=== PATIENT | female | born 1945 | race Caucasian/White ===

== ENCOUNTER 2019-02-22 09:51 | Emergency (ER) | payer MEDICAID, SELFPAY ==
[2019-02-22 09:55] VITALS: BMI 18.8
[2019-02-22 09:57] VITALS: BP 131/51; PULSE 74; RESP 18; TEMP 36.6; O2SAT 98
--- NOTE | 2019-02-22 09:58 | ED_ITS ---
Entered by Santiago Cueto LPN, acting as scribe for Davie Wilson MD HPI - Extremity Problem General: Chief complaint: Extremity Injury, Upper Stated complaint: fall/right wrist pain Time Seen by Provider: 02/22/19 09:56 Source: patient Mode of arrival: ambulatory Limitations: no limitations History of Present Illness: HPI Narrative: 73 yo female presents with c/o right wrist pain that started after she tripped and fell in the bathroom about 0230 this am. Pain increases with touch and movement, mostly present on radial side. Currently rating pain as severe. She denies numbness or tingling. She denies prior injury or surgery to this extremity. She denies any other injury in the fall. Denies head injury or LOC, denies neck pain. She is currently on Xarelto, for h/o CVA. No recent med changes. No other recent signs of illness. Pt last drank one cup of coffee about 0800. Complaint: extremity pain (RUE wrist) Onset (ago): day(s) (onset today, 0230 this am) Pain Consistency: constant Location: right Radiation: none Relieving factors: movement Exacerbating factors: nothing Associated symptoms: Deny chest pain, fever(s) or rash Review of Systems Const: Denies: fever, chills, night sweats or diaphoresis Eyes: Denies: change in vision or blurry vision ENMT: Denies: throat pain Card: Denies: chest pain Resp: Denies: shortness of breath or productive cough GI: Denies: abdominal pain, nausea, vomiting, constipation or change in bowel habits : Denies: painful urination Musc: Reports: extremity pain; Denies: joint pain Skin/Breast: Denies: rash Neuro: Denies: headache, difficulty walking or confusion Psych: Denies: suicidal ideation or homicidal ideation PFSH ED PFSH: Statuses (acute, chronic, etc) shown below reflect problem list status as previously entered and may not be historically accurate Medical History (Updated 02/22/19 @ 10:08 by Santiago Cueto LPN) H/O: CVA (cerebrovascular accident) (Acute) Social History Smoking and tobacco status: former smoker Physical Exam Const: COMMON NORMALS: no apparent distress, oriented x3, no limitations and alert EXAM LIMITATIONS: no altered mental status GENERAL APPEARANCE: cooperative, comfortable and well developed; not in distress, not anxious and not lethargic ORIENTATION/CONSCIOUSNESS: Yes awake, Yes oriented to person, Yes oriented to place and Yes oriented to time; not lethargic HENMT: COMMON NORMALS: normocephalic, head/scalp atraumatic and external nose normal HEAD & SCALP: normocephalic and atraumatic FACE & SINUS: normal facial exam NOSE: external nose normal Eye: COMMON NORMALS: PERRL, EOMs intact bilaterally, conjunctivae normal and no scleral icterus CONJUNCTIVA: Yes conjunctivae normal PUPIL: Yes PERRL Neck/C-Spine: COMMON NORMALS: full ROM GENERAL: Yes normal visual inspection Chest: COMMONS NORMALS: inspection of chest normal and palpation of chest normal Resp: COMMON NORMALS: normal respiratory effort, no retractions, no use of accessory muscles and clear to auscultation bilaterally EFFORT & INSPECTION: Yes able to speak in complete sentences AUSCULTATION: clear to auscultation bilaterally Cardio: COMMON NORMALS: regular rate, regular rhythm, no murmurs and peripheral pulses 2+ throughout RATE: regular rate RHYTHM: regular rhythm PERIPHERAL PULSES: pulses 2+ throughout, radial pulses present and posterior tibial pulses present GI: COMMON NORMALS: normal to inspection, nondistended, normoactive bowel sounds, soft to palpation, non-tender, no hepatosplenomegaly, no masses and no bruits PALPATION: Yes soft and Yes no hepatosplenomegaly Extremity: COMMON NORMALS: full ROM, normal capillary refill, no joint enlargement and no clubbing, cyanosis or edema NARRATIVE EXTREMITY EXAM: tenderness to palpation along dorsal and radial aspect right wrist, full ROM throughout fingers, hand, wrist, elbow but limited by pain, n/v intact distally, good strong ulnar and radial pulses, 2+ capillary refill. Neuro: COMMON NORMALS: oriented x3 SENSORIUM/ORIENTATION: Yes alert, Yes oriented to person, Yes oriented to place, Yes oriented to time and No lethargic Psych: COMMON NORMALS: mental status grossly normal, thought process normal, cooperative, affect normal, speech normal and activity/motor behavior normal SPEECH: Yes normal speech THOUGHT PROCESS: normal thought process Skin: COMMON NORMALS: no rashes or lesions noted and skin turgor normal GENERAL SKIN EXAM: no rashes or lesions noted, elasticity normal and turgor normal Course ED course: Patient has a mild patient has a mild nondisplaced comminuted nonangulated radius and ulnar fracture. We will place the patient in a sugar tong reevaluate neurovascular status and have her follow-up with orthopedics Reevaluation(s): Reevaluation #1: Sugar tong splint placed in appropriate location and condition. Patient is neurovascularly intact with good sensation and strength and capillary refill all 5 digits. Time: 11:26 Vital Signs: Vital signs: Vital Signs Temperature 97.8 F 02/22/19 09:57 Pulse Rate 74 02/22/19 09:57 Respiratory Rate 18 02/22/19 09:57 Blood Pressure 131/51 02/22/19 09:57 Pulse Oximetry 98 02/22/19 09:57 MDM - Extremity (Nontraumatic) MDM Narrative: Medical decision making narrative: Differential includes radial/ulnar wrist fracture, sprain, contusion. Patient's is not exquisitely tender but tender with palpation and movement. She does have full range of motion as far as use of her hand fingers wrist and elbow muscles and tendons but is limited by pain. She is neurovascular intact. Will get imaging help with pain control Imaging Data^: Xray Ortho: My impression: Ulnar styloid fracture with concurrent comminuted nondisplaced extra-articular ulnar fracture also nondisplaced mildly comminuted nondisplaced radial fracture Discharge Plan Discharge Prescriptions: No Action enalapril maleate 5 mg Tablet 5 mg PO DAILY RF: 0 lovastatin 40 mg Tablet 40 mg PO DAILY RF: 0 topiramate 25 mg Tablet 25 mg PO DAILY RF: 0 levothyroxine 100 mcg Tablet 100 mcg PO DAILY RF: 0 Xanax 0.5 mg Tablet 0.5 mg PO TID PRN (Reason: Anxiety) RF: 0 memantine 5 mg Tablet 5 mg PO BID RF: 0 Xarelto 10 mg Tablet 10 mg PO DAILY RF: 0 fluoxetine 60 mg Tablet 60 mg PO DAILY RF: 0 Tylenol Arthritis Pain 650 mg Tablet Extended Release 650 mg PO DAILY RF: 0 magnesium 250 mg Tablet 250 mg PO DAILY RF: 0 turmeric 400 mg Capsule 400 mg PO DAILY RF: 0 Coding Level of Care Code ED Cigarette Making Machine Hopper Feeder for Chg Fwd Exam Problem Focused The documentation recorded by the Nory saeed Dani Elizabeth, LPN, accurately reflects the service I personally performed and the decisions made by me, Davie Wilson MD
--- NOTE | 2019-02-22 10:03 | XRR_ITS ---
PROCEDURE INFORMATION: Exam: XR Right Wrist Exam date and time: 02/22/2019 10:09 AM Age: 73 years old Clinical indication: Injury or trauma; Fall; Initial encounter; Blunt trauma (contusions or hematomas; Wrist; Right; Additional info: Fall with pain TECHNIQUE: Imaging protocol: XR Right wrist. Views: 3 or more views. COMPARISON: No relevant prior studies available. FINDINGS: Bones/joints: Osteopenia with nondisplaced distal right radial fracture. Degenerative change. Contour irregularity about the distal fibula along and old ulnar styloid avulsion fracture. Soft tissues: Soft tissue swelling. XR/XR wrist RT min 3V* [id number] IMPRESSION: 1. Osteopenia with nondisplaced distal right radius. 2. Additional findings as described above.
[2019-02-22] MEDS: acetaminophen 500 mg Tablet PO (10:16)
--- NOTE | 2019-02-22 10:58 | PC.NURSE ---
this tech to do rounding, doctor in room at this time.
[2019-02-22 11:52] VITALS: BP 123/52; PULSE 62; RESP 18; O2SAT 99
--- NOTE | 2019-02-23 14:55 | DCPLANNER ---
regional ehs manager had message to schedule a follow up appointment for patient with ortho. regional ehs manager called the ortho clinic, spoke with Pat, gave clinic patients information. regional ehs manager was told that patients information would be printed and reviewed. Clinic will call telehealth case manager and patient with appointment information.
--- NOTE | 2019-02-24 14:46 | DCPLANNER ---
A follow up appointment is scheduled for patient for February at 10:[address] Balbuena. Clinic will contact patient with appointment information.
--- NOTE | 2019-03-03 14:35 | DCPLANNER ---
Patient did attend appointment scheduled for 02.26.19 with ortho.
== END 2019-02-22 11:53 | disposition home or self-care (01) ==
PROVIDERS: Emergency Provider Family Medicine; Family Provider Family Medicine; PCP Internal Medicine
DX: S52.614A Nondisplaced fracture of right ulna styloid process, initial encounter for closed fracture (principal); S52.254A Nondisplaced comminuted fracture of shaft of ulna, right arm, initial encounter for closed fracture; S52.501A Unspecified fracture of the lower end of right radius, initial encounter for closed fracture; W01.0XXA Fall on same level from slipping, tripping and stumbling without subsequent striking against object, initial encounter; Y92.002 Bathroom of unspecified non-institutional (private) residence as the place of occurrence of the external cause; Z87.891 Personal history of nicotine dependence; Z86.73 Personal history of transient ischemic attack (TIA), and cerebral infarction without residual deficits
CPT/HCPCS: 73110; 99281

== ENCOUNTER 2019-02-26 16:41 | Outpatient (CLI) | payer MEDICAID, SELFPAY | END 2019-02-26 16:42 | disposition home or self-care (01) | LOC: SPT 16:42 | PROVIDERS: Family Provider Family Medicine; PCP Internal Medicine; Visit Provider Orthopaedic Surgery | DX: S63.501D Unspecified sprain of right wrist, subsequent encounter (principal); X58.XXXD Exposure to other specified factors, subsequent encounter | CPT/HCPCS: L3908 ==

== ENCOUNTER → 2019-03-16 14:24 | Outpatient (BNVA) | payer MEDICAID, SELFPAY | PROVIDERS: Family Provider Family Medicine; PCP Internal Medicine; Visit Provider Orthopaedic Surgery | DX: S52.591A Other fractures of lower end of right radius, initial encounter for closed fracture (principal); S52.691A Other fracture of lower end of right ulna, initial encounter for closed fracture; M25.531 Pain in right wrist; X58.XXXA Exposure to other specified factors, initial encounter | CPT/HCPCS: 73110 ==

== ENCOUNTER 2019-04-01 14:12 | Outpatient (CLI) | payer MEDICAID, SELFPAY ==
--- NOTE | 2019-04-01 15:08 | XR_ITS ---
WS: [id number] DEXA (DUAL ENERGY X-RAY ABSORPTIOMETRY) Bone mineral density was performed using a [employer] machine. HISTORY: ASYMPTOMATIC POSTMENOPAUSAL STATUS COMPARISON: None available. Lumbar spine BMD (L1-L4): 0.827 g/cm2 T score: -2.9 Z score: -0.8 Total hip BMD: Left: 0.698 g/cm2. T score: -2.5 Z score: -0.6 Right: 0.635 g/cm2. T score: -3.0 Z score: -1.1 10 year probability of a major osteoporotic fracture is 26%. XR/XR DEXA axial skeleton* [id number] IMPRESSION: OSTEOPOROSIS based upon the WHO classification for females. Significant increased risk for fracture.
--- NOTE | 2019-04-01 15:39 | MM_ITS ---
WS: [id number] BILATERAL DIGITAL SCREENING MAMMOGRAPHY WITH CAD CLINICAL INFORMATION: SCREENING HISTORY: Screening mammogram. No current complaints. COMPARISON: December 05, 2017 TECHNIQUE: Bilateral CC and MLO views. FINDINGS: The breasts are composed of heterogeneous fibroglandular density tissue, which can limit the detectio n of small underlying mass lesions. Multiple stable clustered calcifications unchanged. No suspicious mass, asymmetry, calcifications, or architectural distortion. No evidence of malignancy. MM/[place] [id number] IMPRESSION: BI-RADS: 2-Benign FOLLOW UP: 1 Year Follow-up Recommend return to annual screening mammography.
== END 2019-04-01 14:13 | disposition home or self-care (01) ==
LOC: RADWPI 14:16
PROVIDERS: Family Provider Family Medicine; PCP Internal Medicine; Visit Provider Internal Medicine
DX: M81.0 Age-related osteoporosis without current pathological fracture (principal); Z78.0 Asymptomatic menopausal state; Z12.31 Encounter for screening mammogram for malignant neoplasm of breast
CPT/HCPCS: 77067; 77080

== ENCOUNTER → 2019-04-09 15:50 | Outpatient (BNVA) | payer MEDICAID, SELFPAY | PROVIDERS: Family Provider Family Medicine; PCP Internal Medicine; Visit Provider Orthopaedic Surgery | DX: S52.501A Unspecified fracture of the lower end of right radius, initial encounter for closed fracture (principal); X58.XXXA Exposure to other specified factors, initial encounter | CPT/HCPCS: 73110 ==

== ENCOUNTER 2019-05-11 12:17 | Emergency (ER) | payer MEDICAID, SELFPAY ==
[2019-05-11 12:19] VITALS: BP 136/67; PULSE 78; RESP 17; O2SAT 95; BMI 18.8
--- NOTE | 2019-05-11 12:59 | ECG_ITS ---
Measurements Intervals [place] Rate: 71 P: 64 ID: 128 QRS: 11 QRSD: 80 T: 50 QT: 395 QTc: 430 SINUS RHYTHM WITH OCCASIONAL SUPRAVENTRICULAR PREMATURE COMPLEXES No previous ECG available for comparison Electronically Signed On 05-11-2019 18:31:04 CDT by Tia He M.D. [email or web address]
--- NOTE | 2019-05-11 12:59 | XR_ITS ---
WS: [id number] PORTABLE CHEST HISTORY: cough/congestion COMPARISON: 01/09/2010 Lungs are clear and well expanded. No pleural effusion or pneumothorax. Cardiac size: Normal. Mediastinum/Aorta: Partially calcified aorta. No osseous abnormality seen. XR/XR chest 1V portable [id number] IMPRESSION: Partially calcified aorta. No pneumonia.
--- NOTE | 2019-05-11 12:59 | CT_ITS ---
WS: [id number] CT HEAD NONCONTRAST HISTORY: trauma, increasing confusion. TECHNIQUE: Contiguous axial imaging performed through the brain in 2.5 mm imaging. Bone and soft tiss ue windows. Sagittal and coronal reformats reviewed. All CT scans at [facility] use at le ast one of these dose optimization techniques: automated exposure control; mA and/or kV adjustment pe r patient size (includes targeted exams where dose is matched to clinical indication); or iterative r econstruction. DLP: 791.87 mGy.cm COMPARISON: 01/07/2010 No acute intracranial hemorrhage, midline shift or mass effect. Mild atrophy. Large prior infarct involving the LEFT putamen. No hemorrhage. Mild dilatation of the L EFT ventricle due to the LEFT basal ganglia infarct and volume loss. Additional chronic microvascular ischemic disease, asymmetric and greatest to the LEFT. Ventricles: No hydrocephalus. Paranasal sinuses: As visualized are clear. Mastoid air cells: Well pneumatized. Calvarium and scalp: Skull is intact with no soft tissue edema or swelling. CT/CT head wo con* [id number] IMPRESSION: 1. No acute intracranial hemorrhage or edema. 2. 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
--- NOTE | 2019-05-11 13:02 | ED_ITS ---
Documented by User: YOLANDA Kovacs 05/12/19 07:10 HPI - Altered Mental Status General: Chief Complaint: Altered Mental Status Stated Complaint: CONFUSION Time Seen by Provider: 05/11/19 12:39 Source: patient and family (daughter ) Mode of arrival: ambulatory Limitations: altered mental status History of Present Illness: HPI narrative: Patient is a very nice 74-year-old female who presents to ED today along with her daughter for complaints of altered mental status. Daughter states she began noticing that on the patient was out of sorts . Daughter states her mother has been confused and acting abnormally. Patient does have mild dementia but daughter states this was uncharacteristic for her. Daughter states there have been some mornings recently where she has missed her AM meds. In addition daughter states they recently have weened her off her Ativan. Daughter has not noticed any fevers, diarrhea, vomiting. When asked patient tells me that I do not feel good and reports pain in her chest and shortness of breath. Patient has a previous history of CVAs and daughter is concerned about this today. Reports yesterday they had a good day and worked outside in the yard but today patient again seemed very confused. MD complaint: altered mental status and confusion Onset (ago): day(s) Consistency of symptoms: Waxing and Waning Context: change in medication Associated symptoms: Reports no associated symptoms Review of Systems Const: Denies: fever, chills or change in appetite Eyes: Denies: change in vision, blurry vision or photophobia ENMT: Denies: throat pain, enlarged tonsils or painful swallowing Card: Reports: chest pain; Denies: palpitations, irregular heart rhythm, edema, swelling of feet/ankles, lightheadedness, syncope, pre-syncope or shortness of breath when lying down Resp: Reports: shortness of breath; Denies: productive cough, non-productive cough, wheezing, pain on inspiration, change in phlegm color, coughing up blood or chest congestion GI: Denies: abdominal pain, nausea, vomiting or diarrhea : Denies: difficulty urinating, painful urination, urinary frequency or urinary urgency Musc: Denies: neck pain or back pain Skin/Breast: Denies: rash Neuro: Denies: headache PFSH ED PFSH: Social History Smoking and tobacco status: former smoker Quit status (tobacco): has quit using tobacco Year quit tobacco: 2-3 months Alcohol intake: never Physical Exam Const: COMMON NORMALS: no apparent distress, average body habitus, healthy appearing, alert and well nourished GENERAL APPEARANCE: cooperative ORIENTATION/CONSCIOUSNESS: Yes oriented to person OTHER: can tell me she is at a hospital, she knows her name, thinks Jeanmarie is the president; she answers all of my questions and follows commands well HENMT: COMMON NORMALS: normocephalic and head/scalp atraumatic HEAD & SCALP: normocephalic and atraumatic Eye: COMMON NORMALS: PERRL, EOMs intact bilaterally and conjunctivae normal CONJUNCTIVA: Yes conjunctivae normal PUPIL: Yes PERRL Neck/C-Spine: COMMON NORMALS: no lymphadenopathy Resp: COMMON NORMALS: normal respiratory effort AUSCULTATION: rhonchi (LLL) Cardio: COMMON NORMALS: regular rate and regular rhythm RATE: regular rate RHYTHM: regular rhythm GI: COMMON NORMALS: normal to inspection, nondistended, normoactive bowel s ounds, soft to palpation, non-tender, no hepatosplenomegaly and no masses PALPATION: Yes soft and Yes no hepatosplenomegaly : COMMON NORMALS: Yes no CVA tenderness BLADDER/KIDNEY EXAM: Yes no CVA tenderness Back/Pelvis: COMMON NORMALS: no CVA tenderness Extremity: COMMON NORMALS: normal to inspection, full ROM, normal capillary refill, no joint enlargement and no pedal edema Neuro: CARTER COMA SCALE: document GCS findings Carter coma scale eye opening: Spontaneous Eleanor coma scale verbal response: Orientated Carter coma scale motor response: Obey commands Carter coma scale total score: 15 COMMON NORMALS: CN's II-XII intact bilaterally, moves all extremities, no focal motor deficits, no sensory deficits noted and gait normal SENSORIUM/ORIENTATION: Yes alert and Yes oriented to person Skin: COMMON NORMALS: no rashes or lesions noted GENERAL SKIN EXAM: no rashes or lesions noted Course Vital Signs: Vital signs: Vital Signs Pulse Rate 78 05/11/19 16:20 Respiratory Rate 16 05/11/19 16:20 Blood Pressure 136/67 05/11/19 12:19 Pulse Oximetry 97 05/11/19 16:20 MDM - Altered Mental Status MDM Narrative: Medical decision making narrative: Patient was also seen and evaluated by Dr. Wilks. He will assume care of patient. Lab Data: Labs: Lab Results 05/11/19 05/11/19 05/11/19 Range/Units 12:47 12:47 13:08 WBC (4.0-10.0) 10^3/ uL RBC (4.1-5.3) 10^6/u L Hgb (11.5-15.3) g/dL Hct (37.0-47.0) % MCV (81-99) fL MCH (28.0-34.0) pg MCHC (30.0-36.0) g/dL RDW (12.1-15.1) % Plt Count (130-400) 10^3/c mm MPV (7.4-10.4) fL Neut % (Auto) % Lymph % (Auto) % Lipscomb % (Auto) % Eos % (Auto) % Baso % (Auto) % Neut # (Auto) (1.8-7.7) 10^3/u L Lymph # (Auto) (0.8-4.8) 10^3/u L Lipscomb # (Auto) (0.2-0.9) 10^3/u L Eos # (Auto) (0.0-0.8) 10^3/u L Baso # (Auto) (0.0-0.1) 10^3/u L Nucleated RBC % (a uto) % Nucleated RBCs # /100WBC PT (10.5-13.3) SECO NDS INR (0.8-1.2) APTT (23.9-36.7) SECO NDS Sodium (136-145) mmol/L Potassium (3.5-5.1) mmol/L Chloride (98-107) mmol/L Carbon Dioxide (22-29) mmol/L Anion Gap (5-19) BUN (8-23) mg/dL Creatinine (0.5-0.9) mg/dL Glucose (65-115) mg/dL Calculated Osmolal ity (285-295) mOsm/k g Calcium (8.5-10.5) mg/dL Total Bilirubin (0.15-1.2) mg/dL AST (0-32) U/L ALT (0-33) U/L Alkaline Phosphata se (35-105) IU/L Troponin T Gen 5 n g/L 12 H (0-10) ng/mL Total Protein (6.6-8.7) g/dL Albumin (3.5-5.2) g/dL Globulin (1.3-4.6) g/dL TSH (0.27-4.20) uIU/ mL Urine Color Yellow (Yellow) Urine Appearance Hazy A (CLEAR) Urine pH 5 (5-7) Ur Specific Gravit y 1.020 (1.005-1.030) Urine Protein Neg (Negative) Urine Glucose (UA) Norm (Normal) Urine Ketones Negative (Negative) Urine Blood 3+ H (Negative) Urine Nitrate Negative (Negative) Urine Bilirubin 1+ H (NEGATIVE) Urine Urobilinogen 4 H (Negative) mg/dL Ur Leukocyte Harriett ase Negative (Negative) Urine RBC 10-15 H (0-2) /hpf Urine WBC 5-10 H (0-5) /hpf Ur Squamous Epith Cells >100 H (0-5) Amorphous Sediment Urine Bacteria 1+ H (NONE) Salicylates (3-10) mg/dL Urine Opiates Scre en Negative (Negative) ng/mL Acetaminophen (10-30) ug/mL Ur Barbiturates Sc reen Negative (Negative) ng/mL Ur Phencyclidine S crn Negative (Negative) ng/mL Ur Amphetamines Sc reen Negative (Negative) ng/mL U Benzodiazepines Scrn Positive H (Negative) ng/mL Urine Cocaine Scre en Negative (Negative) ng/mL U Marijuana (THC) Screen Negative (Negative) ng/mL 05/11/19 05/11/19 05/11/19 Range/Units 13:08 13:08 13:08 WBC 5.1 (4.0-10.0) 10^3/ uL RBC 3.63 L (4.1-5.3) 10^6/u L Hgb 10.9 L (11.5-15.3) g/dL Hct 34.8 L (37.0-47.0) % MCV 95.9 (81-99) fL MCH 30.0 (28.0-34.0) pg MCHC 31.3 (30.0-36.0) g/dL RDW 14.1 (12.1-15.1) % Plt Count 168 (130-400) 10^3/c mm MPV 11.7 H (7.4-10.4) fL Neut % (Auto) 63.6 % Lymph % (Auto) 24.1 % Lipscomb % (Auto) 9.7 % Eos % (Auto) 1.6 % Baso % (Auto) 0.8 % Neut # (Auto) 3.3 (1.8-7.7) 10^3/u L Lymph # (Auto) 1.2 (0.8-4.8) 10^3/u L Lipscomb # (Auto) 0.5 (0.2-0.9) 10^3/u L Eos # (Auto) 0.1 (0.0-0.8) 10^3/u L Baso # (Auto) 0.0 (0.0-0.1) 10^3/u L Nucleated RBC % (a uto) 0 % Nucleated RBCs # 0.0 /100WBC PT 15.30 H (10.5-13.3) SECO NDS INR 1.17 (0.8-1.2) APTT 31.7 (23.9-36.7) SECO NDS Sodium 140 (136-145) mmol/L Potassium 4.2 (3.5-5.1) mmol/L Chloride 103 (98-107) mmol/L Carbon Dioxide 26 (22-29) mmol/L Anion Gap 15.2 (5-19) BUN 29 H (8-23) mg/dL Creatinine 0.7 (0.5-0.9) mg/dL Glucose 102 (65-115) mg/dL Calculated Osmolal ity 287 (285-295) mOsm/k g Calcium 9.6 (8.5-10.5) mg/dL Total Bilirubin 0.2 (0.15-1.2) mg/dL AST 22 (0-32) U/L ALT 15 (0-33) U/L Alkaline Phosphata se 57 (35-105) IU/L Troponin T Gen 5 n g/L (0-10) ng/mL Total Protein 6.0 L (6.6-8.7) g/dL Albumin 3.8 (3.5-5.2) g/dL Globulin 2.2 (1.3-4.6) g/dL TSH 0.85 (0.27-4.20) uIU/ mL Urine Color (Yellow) Urine Appearance (CLEAR) Urine pH (5-7) Ur Specific Gravit y (1.005-1.030) Urine Protein (Negative) Urine Glucose (UA) (Normal) Urine Ketones (Negative) Urine Blood (Negative) Urine Nitrate (Negative) Urine Bilirubin (NEGATIVE) Urine Urobilinogen (Negative) mg/dL Ur Leukocyte Harriett ase (Negative) Urine RBC (0-2) /hpf Urine WBC (0-5) /hpf Ur Squamous Epith Cells (0-5) Amorphous Sediment Urine Bacteria (NONE) Salicylates < 0.3 L (3-10) mg/dL Urine Opiates Scre en (Negative) ng/mL Acetaminophen < 5.0 L (10-30) ug/mL Ur Barbiturates Sc reen (Negative) ng/mL Ur Phencyclidine S crn (Negative) ng/mL Ur Amphetamines Sc reen (Negative) ng/mL U Benzodiazepines Scrn (Negative) ng/mL Urine Cocaine Scre en (Negative) ng/mL U Marijuana (THC) Screen (Negative) ng/mL 05/11/19 Range/Units 14:39 WBC (4.0-10.0) 10^3/ uL RBC (4.1-5.3) 10^6/u L Hgb (11.5-15.3) g/dL Hct (37.0-47.0) % MCV (81-99) fL MCH (28.0-34.0) pg MCHC (30.0-36.0) g/dL RDW (12.1-15.1) % Plt Count (130-400) 10^3/c mm MPV (7.4-10.4) fL Neut % (Auto) % Lymph % (Auto) % Lipscomb % (Auto) % Eos % (Auto) % Baso % (Auto) % Neut # (Auto) (1.8-7.7) 10^3/u L Lymph # (Auto) (0.8-4.8) 10^3/u L Lipscomb # (Auto) (0.2-0.9) 10^3/u L Eos # (Auto) (0.0-0.8) 10^3/u L Baso # (Auto) (0.0-0.1) 10^3/u L Nucleated RBC % (a uto) % Nucleated RBCs # /100WBC PT (10.5-13.3) SECO NDS INR (0.8-1.2) APTT (23.9-36.7) SECO NDS Sodium (136-145) mmol/L Potassium (3.5-5.1) mmol/L Chloride (98-107) mmol/L Carbon Dioxide (22-29) mmol/L Anion Gap (5-19) BUN (8-23) mg/dL Creatinine (0.5-0.9) mg/dL Glucose (65-115) mg/dL Calculated Osmolal ity (285-295) mOsm/k g Calcium (8.5-10.5) mg/dL Total Bilirubin (0.15-1.2) mg/dL AST (0-32) U/L ALT (0-33) U/L Alkaline Phosphata se (35-105) IU/L Troponin T Gen 5 n g/L (0-10) ng/mL Total Protein (6.6-8.7) g/dL Albumin (3.5-5.2) g/dL Globulin (1.3-4.6) g/dL TSH (0.27-4.20) uIU/ mL Urine Color Yellow (Yellow) Urine Appearance Clear (CLEAR) Urine pH 5 (5-7) Ur Specific Gravit y 1.020 (1.005-1.030) Urine Protein Neg (Negative) Urine Glucose (UA) Norm (Normal) Urine Ketones 1+ H (Negative) Urine Blood 2+ H (Negative) Urine Nitrate Negative (Negative) Urine Bilirubin Neg (NEGATIVE) Urine Urobilinogen 1 H (Negative) mg/dL Ur Leukocyte Harriett ase Negative (Negative) Urine RBC 5-10 H (0-2) /hpf Urine WBC 0-4 H (0-5) /hpf Ur Squamous Epith Cells 0-4 H (0-5) Amorphous Sediment Not Reportable Urine Bacteria Trace (NONE) Salicylates (3-10) mg/dL Urine Opiates Scre en (Negative) ng/mL Acetaminophen (10-30) ug/mL Ur Barbiturates Sc reen (Negative) ng/mL Ur Phencyclidine S crn (Negative) ng/mL Ur Amphetamines Sc reen (Negative) ng/mL U Benzodiazepines Scrn (Negative) ng/mL Urine Cocaine Scre en (Negative) ng/mL U Marijuana (THC) Screen (Negative) ng/mL Imaging Data^: CXR: Radiologist's impression: [address] [place] [address] XRay Report Signed Patient: Melva Viveros Unit #: [id number] : 1945 Age/Sex: 74 / F ADM Date: 05/11/19 Loc: ER Room/Bed: Attending Dr: Ordering Provider/Ordering MD: Mi Perkins Date of Service: 05/11/19 Procedure(s): XR chest 1V portable 12860 Accession Number(s): [id number] Report Number: [id number] WS: [id number] PORTABLE CHEST HISTORY: cough/congestion COMPARISON: 01/09/2010 Lungs are clear and well expanded. No pleural effusion or pneumothorax. Cardiac size: Normal. Mediastinum/Aorta: Partially calcified aorta. No osseous abnormality seen. XR/XR chest 1V portable [id number] IMPRESSION: Partially calcified aorta. No pneumonia. Dictated By: Maite Regan DO Signed By: Maite Regan DO Signed Date/Time: 05/11/19 1319 DD/ 1317 CT Head: Radiologist's impression: [address] [place] [address] CT Scan Report Signed Patient: Melva Viveros Unit #: [id number] : 1945 Age/Sex: 74 / F ADM Date: 05/11/19 Loc: ER Room/Bed: Attending Dr: Ordering Provider/Ordering MD: Mi Perkins Date of Service: 05/11/19 Procedure(s): CT head wo con* [id number] Accession Number(s): [id number] Report Number: [id number] WS: [id number] CT HEAD NONCONTRAST HISTORY: trauma, increasing confusion. TECHNIQUE: Contiguous axial imaging performed through the brain in 2.5 mm imaging. Bone and soft tissue windows. Sagittal and coronal reformats reviewed. All CT scans at [facility] use at least one of these dose optimization techniques: automated exposure control; mA and/or kV adjustment per patient size (includes targeted exams where dose is matched to clinical indication); or iterative reconstruction. DLP: 791.87 mGy.cm COMPARISON: 01/07/2010 No acute intracranial hemorrhage, midline shift or mass effect. Mild atrophy. Large prior infarct involving the LEFT putamen. No hemorrhage. Mild dilatation of the LEFT ventricle due to the LEFT basal ganglia infarct and volume loss. Additional chronic microvascular ischemic disease, asymmetric and greatest to the LEFT. Ventricles: No hydrocephalus. Paranasal sinuses: As visualized are clear. Mastoid air cells: Well pneumatized. Calvarium and scalp: Skull is intact with no soft tissue edema or swelling. CT/CT head wo con* [id number] IMPRESSION: 1. No acute intracranial hemorrhage or edema. 2. 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 Dictated By: Maite Regan DO Signed By: Maite Regan DO Signed Date/Time: 05/11/19 1340 DD/ 1334 Discharge Plan Discharge Patient Disposition: Home, Self-Care Clinical Impression: Dementia Condition: Stable Prescriptions: No Action enalapril maleate 5 mg Tablet 5 mg PO DAILY RF: 0 lovastatin 40 mg Tablet 40 mg PO QPM RF: 0 levothyroxine 100 mcg Tablet 100 mcg PO DAILY RF: 0 alprazolam [Xanax] 0.5 mg Tablet 0.5 mg PO DAILY PRN (Reason: Anxiety) RF: 0 memantine 5 mg Tablet 5 mg PO BID RF: 0 Xarelto 10 mg Tablet 10 mg PO QPM RF: 0 fluoxetine 60 mg Tablet 60 mg PO DAILY RF: 0 acetaminophen [Tylenol Arthritis Pain] 650 mg Tablet Extended Release 650 mg PO PRN RF: 0 turmeric 400 mg Capsule 400 mg PO DAILY RF: 0 trazodone 50 mg Tablet 25 mg PO BEDTIME PRN (Reason: Sleep) RF: 0 Vitamin D3 125 mcg (5,000 unit) Tablet 5,000 unit PO DAILY RF: 0 Referrals: Melissa Neff MD [Primary Care Provider] - Discharge Diet: Usual diet Discharge Activity: Resume usual activity Activity Restrictions/Additional Instructions: Follow-up with your primary care provider as needed Discharge Date/Time: 05/11/19 16:20 Coding Level of Care Code ED Boiler Water Tester for Chg Fwd Exam Comprehensive Documented by User: Norbert Wilks DO 05/14/19 07:08 HPI - Altered Mental Status General: Chief Complaint: Altered Mental Status Stated Complaint: CONFUSION Time Seen by Provider: 05/11/19 12:39 PFSH ED PFSH: Social History Smoking and tobacco status: former smoker Quit status (tobacco): has quit using tobacco Year quit tobacco: 2-3 months Alcohol intake: never Physical Exam Const: COMMON NORMALS: no apparent distress GENERAL APPEARANCE: cooperative and comfortable ORIENTATION/CONSCIOUSNESS: Yes awake, Yes oriented to person, Yes oriented to place and Yes oriented to time HENMT: COMMON NORMALS: normocephalic, head/scalp atraumatic, hearing grossly normal bilaterally, external ears normal, EAC's normal, TM's normal bilaterally, nasal mucous membranes and turbinates normal, moist oral mucous membranes and oropharynx normal HEAD & SCALP: normocephalic and atraumatic NOSE: nasal mucous membranes and turbinates normal EXTERNAL EAR: Yes external ears normal EXTERNAL AUDITORY CANAL: EAC's normal TYMPANIC MEMBRANE: TM's normal bilaterally Eye: COMMON NORMALS: PERRL, EOMs intact bilaterally, conjunctivae normal and no scleral icterus CONJUNCTIVA: Yes conjunctivae normal PUPIL: Yes PERRL Neck/C-Spine: COMMON NORMALS: full ROM, no lymphadenopathy, supple and no JVD Lymph: LYMPHATIC: no lymphadenopathy noted and no lymphedema noted Resp: COMMON NORMALS: normal respiratory effort, no retractions and no use of accessory muscles AUSCULTATION: other (Lower rhonchi bilaterally slightly greater on the left than the right) Cardio: COMMON NORMALS: no JVD, regular rate, regular rhythm and no murmurs RATE: regular rate RHYTHM: regular rhythm GI: COMMON NORMALS: soft to palpation and no hepatosplenomegaly AUSCULTATION: Yes normoactive bowel sounds PALPATION: Yes soft, No tender, No guarding and Yes no hepatosplenomegaly Extremity: COMMON NORMALS: normal to inspection, normal capillary refill, no clubbing, cyanosis or edema, no calf tenderness and no pedal edema Neuro: SENSORIUM/ORIENTATION: Yes oriented to person, Yes oriented to place and Yes oriented to time Skin: COMMON NORMALS: no rashes or lesions noted GENERAL SKIN EXAM: no rashes or lesions noted Course Vital Signs: Vital signs: Vital Signs Pulse Rate 78 05/11/19 16:20 Respiratory Rate 16 05/11/19 16:20 Blood Pressure 136/67 05/11/19 12:19 Pulse Oximetry 97 05/11/19 16:20 MDM - Altered Mental Status MDM Narrative: Medical decision making narrative: Reviewed and patient does have some moderate dementia but no significant findings her anemia is chronic. She does have an elevated BUN. We will go ahead and discharge her home she is not having any symptoms at this time return to the emergency room if she has any further problems. Lab Data: Attestation: I reviewed the patient's lab results. Labs: Lab Results 05/11/19 05/11/19 05/11/19 Range/Units 12:47 12:47 13:08 WBC (4.0-10.0) 10^3/ uL RBC (4.1-5.3) 10^6/u L Hgb (11.5-15.3) g/dL Hct (37.0-47.0) % MCV (81-99) fL MCH (28.0-34.0) pg MCHC (30.0-36.0) g/dL RDW (12.1-15.1) % Plt Count (130-400) 10^3/c mm MPV (7.4-10.4) fL Neut % (Auto) % Lymph % (Auto) % Lipscomb % (Auto) % Eos % (Auto) % Baso % (Auto) % Neut # (Auto) (1.8-7.7) 10^3/u L Lymph # (Auto) (0.8-4.8) 10^3/u L Lipscomb # (Auto) (0.2-0.9) 10^3/u L Eos # (Auto) (0.0-0.8) 10^3/u L Baso # (Auto) (0.0-0.1) 10^3/u L Nucleated RBC % (a uto) % Nucleated RBCs # /100WBC PT (10.5-13.3) SECO NDS INR (0.8-1.2) APTT (23.9-36.7) SECO NDS Sodium (136-145) mmol/L Potassium (3.5-5.1) mmol/L Chloride (98-107) mmol/L Carbon Dioxide (22-29) mmol/L Anion Gap (5-19) BUN (8-23) mg/dL Creatinine (0.5-0.9) mg/dL Glucose (65-115) mg/dL Calculated Osmolal ity (285-295) mOsm/k g Calcium (8.5-10.5) mg/dL Total Bilirubin (0.15-1.2) mg/dL AST (0-32) U/L ALT (0-33) U/L Alkaline Phosphata se (35-105) IU/L Troponin T Gen 5 n g/L 12 H (0-10) ng/mL Total Protein (6.6-8.7) g/dL Albumin (3.5-5.2) g/dL Globulin (1.3-4.6) g/dL TSH (0.27-4.20) uIU/ mL Urine Color Yellow (Yellow) Urine Appearance Hazy A (CLEAR) Urine pH 5 (5-7) Ur Specific Gravit y 1.020 (1.005-1.030) Urine Protein Neg (Negative) Urine Glucose (UA) Norm (Normal) Urine Ketones Negative (Negative) Urine Blood 3+ H (Negative) Urine Nitrate Negative (Negative) Urine Bilirubin 1+ H (NEGATIVE) Urine Urobilinogen 4 H (Negative) mg/dL Ur Leukocyte Harriett ase Negative (Negative) Urine RBC 10-15 H (0-2) /hpf Urine WBC 5-10 H (0-5) /hpf Ur Squamous Epith Cells >100 H (0-5) Amorphous Sediment Urine Bacteria 1+ H (NONE) Salicylates (3-10) mg/dL Urine Opiates Scre en Negative (Negative) ng/mL Acetaminophen (10-30) ug/mL Ur Barbiturates Sc reen Negative (Negative) ng/mL Ur Phencyclidine S crn Negative (Negative) ng/mL Ur Amphetamines Sc reen Negative (Negative) ng/mL U Benzodiazepines Scrn Positive H (Negative) ng/mL Urine Cocaine Scre en Negative (Negative) ng/mL U Marijuana (THC) Screen Negative (Negative) ng/mL 05/11/19 05/11/19 05/11/19 Range/Units 13:08 13:08 13:08 WBC 5.1 (4.0-10.0) 10^3/ uL RBC 3.63 L (4.1-5.3) 10^6/u L Hgb 10.9 L (11.5-15.3) g/dL Hct 34.8 L (37.0-47.0) % MCV 95.9 (81-99) fL MCH 30.0 (28.0-34.0) pg MCHC 31.3 (30.0-36.0) g/dL RDW 14.1 (12.1-15.1) % Plt Count 168 (130-400) 10^3/c mm MPV 11.7 H (7.4-10.4) fL Neut % (Auto) 63.6 % Lymph % (Auto) 24.1 % Lipscomb % (Auto) 9.7 % Eos % (Auto) 1.6 % Baso % (Auto) 0.8 % Neut # (Auto) 3.3 (1.8-7.7) 10^3/u L Lymph # (Auto) 1.2 (0.8-4.8) 10^3/u L Lipscomb # (Auto) 0.5 (0.2-0.9) 10^3/u L Eos # (Auto) 0.1 (0.0-0.8) 10^3/u L Baso # (Auto) 0.0 (0.0-0.1) 10^3/u L Nucleated RBC % (a uto) 0 % Nucleated RBCs # 0.0 /100WBC PT 15.30 H (10.5-13.3) SECO NDS INR 1.17 (0.8-1.2) APTT 31.7 (23.9-36.7) SECO NDS Sodium 140 (136-145) mmol/L Potassium 4.2 (3.5-5.1) mmol/L Chloride 103 (98-107) mmol/L Carbon Dioxide 26 (22-29) mmol/L Anion Gap 15.2 (5-19) BUN 29 H (8-23) mg/dL Creatinine 0.7 (0.5-0.9) mg/dL Glucose 102 (65-115) mg/dL Calculated Osmolal ity 287 (285-295) mOsm/k g Calcium 9.6 (8.5-10.5) mg/dL Total Bilirubin 0.2 (0.15-1.2) mg/dL AST 22 (0-32) U/L ALT 15 (0-33) U/L Alkaline Phosphata se 57 (35-105) IU/L Troponin T Gen 5 n g/L (0-10) ng/mL Total Protein 6.0 L (6.6-8.7) g/dL Albumin 3.8 (3.5-5.2) g/dL Globulin 2.2 (1.3-4.6) g/dL TSH 0.85 (0.27-4.20) uIU/ mL Urine Color (Yellow) Urine Appearance (CLEAR) Urine pH (5-7) Ur Specific Gravit y (1.005-1.030) Urine Protein (Negative) Urine Glucose (UA) (Normal) Urine Ketones (Negative) Urine Blood (Negative) Urine Nitrate (Negative) Urine Bilirubin (NEGATIVE) Urine Urobilinogen (Negative) mg/dL Ur Leukocyte Harriett ase (Negative) Urine RBC (0-2) /hpf Urine WBC (0-5) /hpf Ur Squamous Epith Cells (0-5) Amorphous Sediment Urine Bacteria (NONE) Salicylates < 0.3 L (3-10) mg/dL Urine Opiates Scre en (Negative) ng/mL Acetaminophen < 5.0 L (10-30) ug/mL Ur Barbiturates Sc reen (Negative) ng/mL Ur Phencyclidine S crn (Negative) ng/mL Ur Amphetamines Sc reen (Negative) ng/mL U Benzodiazepines Scrn (Negative) ng/mL Urine Cocaine Scre en (Negative) ng/mL U Marijuana (THC) Screen (Negative) ng/mL 05/11/19 Range/Units 14:39 WBC (4.0-10.0) 10^3/ uL RBC (4.1-5.3) 10^6/u L Hgb (11.5-15.3) g/dL Hct (37.0-47.0) % MCV (81-99) fL MCH (28.0-34.0) pg MCHC (30.0-36.0) g/dL RDW (12.1-15.1) % Plt Count (130-400) 10^3/c mm MPV (7.4-10.4) fL Neut % (Auto) % Lymph % (Auto) % Lipscomb % (Auto) % Eos % (Auto) % Baso % (Auto) % Neut # (Auto) (1.8-7.7) 10^3/u L Lymph # (Auto) (0.8-4.8) 10^3/u L Lipscomb # (Auto) (0.2-0.9) 10^3/u L Eos # (Auto) (0.0-0.8) 10^3/u L Baso # (Auto) (0.0-0.1) 10^3/u L Nucleated RBC % (a uto) % Nucleated RBCs # /100WBC PT (10.5-13.3) SECO NDS INR (0.8-1.2) APTT (23.9-36.7) SECO NDS Sodium (136-145) mmol/L Potassium (3.5-5.1) mmol/L Chloride (98-107) mmol/L Carbon Dioxide (22-29) mmol/L Anion Gap (5-19) BUN (8-23) mg/dL Creatinine (0.5-0.9) mg/dL Glucose (65-115) mg/dL Calculated Osmolal ity (285-295) mOsm/k g Calcium (8.5-10.5) mg/dL Total Bilirubin (0.15-1.2) mg/dL AST (0-32) U/L ALT (0-33) U/L Alkaline Phosphata se (35-105) IU/L Troponin T Gen 5 n g/L (0-10) ng/mL Total Protein (6.6-8.7) g/dL Albumin (3.5-5.2) g/dL Globulin (1.3-4.6) g/dL TSH (0.27-4.20) uIU/ mL Urine Color Yellow (Yellow) Urine Appearance Clear (CLEAR) Urine pH 5 (5-7) Ur Specific Gravit y 1.020 (1.005-1.030) Urine Protein Neg (Negative) Urine Glucose (UA) Norm (Normal) Urine Ketones 1+ H (Negative) Urine Blood 2+ H (Negative) Urine Nitrate Negative (Negative) Urine Bilirubin Neg (NEGATIVE) Urine Urobilinogen 1 H (Negative) mg/dL Ur Leukocyte Harriett ase Negative (Negative) Urine RBC 5-10 H (0-2) /hpf Urine WBC 0-4 H (0-5) /hpf Ur Squamous Epith Cells 0-4 H (0-5) Amorphous Sediment Not Reportable Urine Bacteria Trace (NONE) Salicylates (3-10) mg/dL Urine Opiates Scre en (Negative) ng/mL Acetaminophen (10-30) ug/mL Ur Barbiturates Sc reen (Negative) ng/mL Ur Phencyclidine S crn (Negative) ng/mL Ur Amphetamines Sc reen (Negative) ng/mL U Benzodiazepines Scrn (Negative) ng/mL Urine Cocaine Scre en (Negative) ng/mL U Marijuana (THC) Screen (Negative) ng/mL Imaging Data^: CXR: Radiologist's impression: PORTABLE CHEST HISTORY: cough/congestion COMPARISON: 01/09/2010 Lungs are clear and well expanded. No pleural effusion or pneumothorax. Cardiac size: Normal. Mediastinum/Aorta: Partially calcified aorta. No osseous abnormality seen. XR/XR chest 1V portable [id number] IMPRESSION: Partially calcified aorta. No pneumonia. Dictated By:Maite Regan DO Discharge Plan Discharge Patient Disposition: Home, Self-Care Clinical Impression: Dementia Condition: Stable Prescriptions: No Action enalapril maleate 5 mg Tablet 5 mg PO DAILY RF: 0 lovastatin 40 mg Tablet 40 mg PO QPM RF: 0 levothyroxine 100 mcg Tablet 100 mcg PO DAILY RF: 0 alprazolam [Xanax] 0.5 mg Tablet 0.5 mg PO DAILY PRN (Reason: Anxiety) RF: 0 memantine 5 mg Tablet 5 mg PO BID RF: 0 Xarelto 10 mg Tablet 10 mg PO QPM RF: 0 fluoxetine 60 mg Tablet 60 mg PO DAILY RF: 0 acetaminophen [Tylenol Arthritis Pain] 650 mg Tablet Extended Release 650 mg PO PRN RF: 0 turmeric 400 mg Capsule 400 mg PO DAILY RF: 0 trazodone 50 mg Tablet 25 mg PO BEDTIME PRN (Reason: Sleep) RF: 0 Vitamin D3 125 mcg (5,000 unit) Tablet 5,000 unit PO DAILY RF: 0 Referrals: Melissa Neff MD [Primary Care Provider] - Discharge Diet: Usual diet Discharge Activity: Resume usual activity Activity Restrictions/Additional Instructions: Follow-up with your primary care provider as needed Discharge Date/Time: 05/11/19 16:20 Coding Level of Care Code ED Boiler Water Tester for Chg Fwd Exam Comprehensive
[2019-05-11 13:19] LABS: Basophils % 0.8 %; Eosinophils # 0.1 10^3/uL (0.0-0.8); Eosinophils % 1.6 %; Hematocrit 34.8 % (37.0-47.0); Hemoglobin 10.9 g/dL (11.5-15.3); Lymphocytes # 1.2 10^3/uL (0.8-4.8); Lymphocytes % 24.1 %; Mean Corpuscular HGB Conc 31.3 g/dL (30.0-36.0); Mean Corpuscular Volume 95.9 fL (81-99); Mean Platelet Volume 11.7 fL (7.4-10.4); Monocytes # 0.5 10^3/uL (0.2-0.9); Monocytes % 9.7 %; Neutrophils # 3.3 10^3/uL (1.8-7.7); Neutrophils % 63.6 %; Nucleated Red Blood Cells % 0 %; Platelet Count 168 10^3/cmm (130-400); Red Blood Count 3.63 10^6/uL (4.1-5.3); Red Cell Distribution Width 14.1 % (12.1-15.1); White Blood Count 5.1 10^3/uL (4.0-10.0)
[2019-05-11 13:23] LABS: Amphetamines Screen Urine Negative (Negative); Barbiturates Screen Urine Negative (Negative); Benzodiazepines Screen Urine Positive (Negative); Cocaine Screen Urine Negative (Negative); Opiate Screen Urine Negative (Negative); PCP Screen Urine Negative (Negative); THC Screen Urine Negative (Negative)
--- NOTE | 2019-05-11 13:28 | PC.NURSE ---
Patient returned from CT.
[2019-05-11 13:30] LABS: INR 1.17 (0.8-1.2)
[2019-05-11 13:31] LABS: Partial Thromboplastin Time 31.7 SECONDS (23.9-36.7)
[2019-05-11 13:37] LABS: Troponin T (5th) Once 12 ng/mL (0-10)
[2019-05-11 13:40] LABS: Acetaminophen < 5.0 ug/mL (10-30); Alanine Aminotransferase 15 U/L (0-33); Albumin Level 3.8 g/dL (3.5-5.2); Alkaline Phosphatase 57 IU/L (35-105); Anion Gap 15.2 (5-19); Aspartate Amino Transferase 22 U/L (0-32); Blood Urea Nitrogen 29 mg/dL (8-23); Calcium 9.6 mg/dL (8.5-10.5); Carbon Dioxide 26 mmol/L (22-29); Chloride 103 mmol/L (98-107); Creatinine Clr Calc Pharmacy 52.9613; Globulin 2.2 g/dL (1.3-4.6); Glucose 102 mg/dL (65-115); Osmolality Calculated 287 mOsm/kg (285-295); Potassium 4.2 mmol/L (3.5-5.1); Salicylate < 0.3 mg/dL (3-10); Sodium 140 mmol/L (136-145); Total Bilirubin 0.2 mg/dL (0.15-1.2)
[2019-05-11 13:43] LABS: Thyroid Stimulating Hormone 0.85 uIU/mL (0.27-4.20)
[2019-05-11 13:47] LABS: Bilirubin Urine 1+ (NEGATIVE); Blood Urine 3+ (Negative); Glucose Urine UA Norm (Normal); Ketones Urine Negative (Negative); Nitrate Urine Negative (Negative); Protein Urine Neg (Negative); Urine Appearance Hazy (CLEAR); Urine Color Yellow (Yellow); pH Urine 5 (5-7)
[2019-05-11 13:48] LABS: Add Urine Microscopic? YES; Leukocyte Esterase Urine Negative (Negative); Urobilinogen Urine 4 mg/dL (Negative)
[2019-05-11 13:49] LABS: Add Urine Culture? No; Bacteria Urine 1+; Squamous Epithelial Cell Urine >100 (0-5)
--- NOTE | 2019-05-11 14:26 | PC.NURSE ---
At bedside to perform in/out catheter. The patient verbalized understanding of the procedure and refused.
--- NOTE | 2019-05-11 14:52 | PC.NURSE ---
Patient to restroom via wheelchair
[2019-05-11 15:47] LABS: Add Urine Microscopic? YES; Bilirubin Urine Neg (NEGATIVE); Blood Urine 2+ (Negative); Glucose Urine UA Norm (Normal); Ketones Urine 1+ (Negative); Leukocyte Esterase Urine Negative (Negative); Nitrate Urine Negative (Negative); Protein Urine Neg (Negative); Urine Appearance Clear (CLEAR); Urine Color Yellow (Yellow); Urobilinogen Urine 1 mg/dL (Negative); pH Urine 5 (5-7)
[2019-05-11 15:56] LABS: Add Urine Culture? Yes; Bacteria Urine TRACE; Squamous Epithelial Cell Urine 0-4 (0-5); WBC Urine 0-4 /hpf (0-5)
[2019-05-11 16:20] VITALS: PULSE 78; RESP 16; O2SAT 97
== END 2019-05-11 16:20 | disposition home or self-care (01) ==
PROVIDERS: Physician Assistant; Emergency Provider Family Medicine; Family Provider Family Medicine; PCP Internal Medicine
DX: F03.90 Unspecified dementia, unspecified severity, without behavioral disturbance, psychotic disturbance, mood disturbance, and anxiety (principal); Z87.891 Personal history of nicotine dependence
CPT/HCPCS: 12345; 36415; 70450; 71045; 80053; 80306; 80307; 81001; 84443; 84484; 85025; 85610; 85730; 87086; 93005; 99282; 99283